=== PATIENT | male | born 1990 | race Caucasian/White ===

== ENCOUNTER 2018-05-19 | Emergency (ER) | payer OTHER ==
[2018-05-19] MEDS: HYDROCODONE/APAP (5/325) TAB PO (02:22)
== END 2018-05-19 04:05 | disposition home or self-care (01) ==
LOC: FTE
DX: S89.91XA Unspecified injury of right lower leg, initial encounter (principal); V19.40XA Pedal cycle driver injured in collision with unspecified motor vehicles in traffic accident, initial encounter
CPT/HCPCS: 73562; 73590; 99283-25